=== PATIENT | male | born 1995 | race African-American/Black ===

== ENCOUNTER 2017-01-17 16:37 | Inpatient (IN) | payer SELFPAY ==
[~2017-01-17] VITALS: Ht 182.9 cm; Wt 75.0 kg
[2017-01-17 16:38] VITALS: BP 138/93; PULSE 128; RESP 16; TEMP 100.5; O2SAT 97
[2017-01-17] MEDS ORDERED: ELVI1TAB3 PO (17:32)
[2017-01-17] MEDS ORDERED: LISI-519 PO (17:32)
[2017-01-17] MEDS ORDERED: LEVEMIR SQ ×2 (17:32)
[2017-01-17] MEDS ORDERED: SODIUM CHLOR 0.9% 1000 ML INJ 1,000 ML IV SCH (17:38)
[2017-01-17 17:41] VITALS: BP 134/90; PULSE 112; RESP 20; O2SAT 98
[2017-01-17] MEDS ORDERED: ACETAMINOPHEN 325 MG TAB PO ONE (17:45)
[2017-01-17] MEDS ORDERED: SODIUM CHLORIDE 0.9% FLUSH 5 ML FLUSH IVF PRN (17:45)
[2017-01-17] MEDS ORDERED: ONDANSETRON HCL 4 MG/2 ML VIAL IVP ONE (17:45)
[2017-01-17] MEDS ORDERED: PIPERACIL-TAZO 3.375 GM PREMIX 50 ML IV ONE (17:45)
[2017-01-17] MEDS ORDERED: KETOROLAC TROMETHAMINE 30 MG/ML (IVP) VIAL IVP ONE (17:45)
--- NOTE | 2017-01-17 18:04 | PD ---
HPI Chief Complaint: Abdominal Pain Time Seen by Provider: 17:12 Travel History International Travel<30 days: No Contact w/Intl Traveler<30days: No Traveled to known affect area: No History of Present Illness HPI 21yo M with PMH of type 1 DM and HIV on HAART with undetectable VL as per patient, unknown CD4 count presents to the ED with c/o abdominal pain for 2 weeks. States it has been going on since October but for the last 2 weeks, it has been constant. Pain is mainly epigastric and had an episode of vomiting yesterday. Denies any chest pain, cough, throat pain, sob, urinary complaints or diarrhea. Pt states he has not had bowel movement in a few days. Pt was seen at [facility] on 01/14/17 under another and had US gallbladder that showed mild sludge and no stone. Normal common hepatic duct. Pt had WBC and RBC in UA but urine culture showed no growth. He was given GI cocktail, rocephin and zithromax and discharge with zantac and sucralfate. PFSH Past Medical History Diabetes: Yes Patient Takes Glucophage: No Hypertension: Yes Immune Disorder: Yes (HIV) Tetanus Vaccination: < 5 Years Influenza Vaccination: No Social History Alcohol Use: No Tobacco Use: No Substance Use: No Allergies-Medications (Allergen,Severity, Reaction): Coded Allergies: Zosyn (Verified Allergy, Severe, Hives, 01/17/17) Given Zosyn and Toradol at same time with allergic reaction of hives; uncertain at this time which drug caused the allergic reaction Toradol (Verified Allergy, Unknown, Hives, 01/17/17) Given Zosyn and Toradol at same time with allergic reaction of hives; uncertain at this time which drug caused the allergic reaction Reported Meds & Prescriptions Reported Meds & Active Scripts Active Reported Levemir Inj (Insulin Detemir) 1,000 unit/ 10 ML Vial 19 Units SQ DAILY Do not mix with any other Insulin. Levemir Inj (Insulin Detemir) 1,000 unit/ 10 ML Vial 21 Units SQ HS Do not mix with any other Insulin. Genvoya (Hraspigdcmcq-Lpjllxszkg-Xgmfrbqaqjwi-Tenofvir) [id number] Mg Tab 1 Tab PO DAILY Lisinopril 5 Mg Tab 5 Mg PO DAILY Review of Systems Except as stated in HPI: all other systems reviewed are Neg Physical Exam Narrative GENERAL: 21yo M not in distress. SKIN: Warm and dry. HEAD: Atraumatic. Normocephalic. EYES: Pupils equal and round. No scleral icterus. No injection or drainage. ENT: No nasal bleeding or discharge. Mucous membranes pink and moist. NECK: Trachea midline. No JVD. CARDIOVASCULAR: Tachycardic. No murmur appreciated. RESPIRATORY: No accessory muscle use. Clear to auscultation. Breath sounds equal bilaterally. GASTROINTESTINAL: Abdomen soft, Epigastric and LUQ ttp. No rebound tenderness or guarding. MUSCULOSKELETAL: No obvious deformities. No clubbing. No cyanosis. No edema. NEUROLOGICAL: Awake and alert. No obvious cranial nerve deficits. Motor grossly within normal limits. Normal speech. PSYCHIATRIC: Appropriate mood and affect; insight and judgment normal. Data Data Last Documented VS Vital Signs Date Time Temp Pulse Resp B/P Pulse Ox O2 Delivery O2 Flow Rate FiO2 01/17/17 19:36 18 01/17/17 19:36 112 140/82 99 Room Air 01/17/17 18:46 01/17/17 16:38 100.5 Orders Complete Blood Count With Diff (01/17/17 17:38) Comprehensive Metabolic Panel (01/17/17 17:38) Lipase (01/17/17 17:38) Prothrombin Time / Inr (Pt) (01/17/17 17:38) Act Partial Throm Time (Ptt) (01/17/17 17:38) Urinalysis - C+S If Indicated (01/17/17 17:38) Iv Access Insert/Monitor (01/17/17 17:38) Ecg Monitoring (01/17/17 17:38) Oximetry (01/17/17 17:38) Ondansetron Inj (Zofran Inj) (01/17/17 17:45) Sodium Chlor 0.9% 1000 Ml Inj (Ns 1000 M (01/17/17 17:38) Sodium Chloride 0.9% Flush (Ns Flush) (01/17/17 17:45) Electrocardiogram (01/17/17 17:38) Piperacil-Tazo 3.375 Gm Premix (Zosyn 3. (01/17/17 17:45) Ketorolac Inj (Toradol Inj) (01/17/17 17:45) Blood Culture (01/17/17 17:38) Lactic Acid Sepsis Protocol (01/17/17 17:38) Acetaminophen (Tylenol) (01/17/17 17:45) Influenzae A/B Antigen (01/17/17 17:38) Ct Abd/Pel W Iv Contrast(Rout) (01/17/17 ) Diphenhydramine Inj (Benadryl Inj) (01/17/17 18:45) Urine Culture (01/17/17 17:30) Iohexol 350 Inj (Omnipaque 350 Inj) (01/17/17 18:51) Sodium Chlor 0.9% 1000 Ml Inj (Ns 1000 M (01/17/17 19:15) Morphine Inj (Morphine Inj) (01/17/17 20:00) Admit Order (Ed Use Only) (01/17/17 20:04) Labs Laboratory Tests Test 01/17/17 01/17/17 17:30 17:50 Urine Color YELLOW Urine Turbidity CLEAR Urine pH 6.0 Urine Specific [place] 1.030 Urine Protein 300 mg/dL Urine Glucose (UA) TRACE mg/dL Urine Ketones 10 mg/dL Urine Occult Blood MOD Urine Nitrite NEG Urine Bilirubin NEG Urine Urobilinogen LESS THAN 2.0 MG/DL Urine Leukocyte Esterase SMALL Urine RBC 18 /hpf Urine WBC 38 /hpf Urine Mucus FEW /lpf Microscopic Urinalysis Comment CULTURE INDICATED White Blood Count 6.8 TH/MM3 Red Blood Count 4.30 MIL/MM3 Hemoglobin 13.2 GM/DL Hematocrit 37.9 % Mean Corpuscular Volume 88.2 FL Mean Corpuscular Hemoglobin 30.7 PG Mean Corpuscular Hemoglobin 34.8 % Concent Red Cell Distribution Width 12.8 % Platelet Count 191 TH/MM3 Mean Platelet Volume 7.3 FL Neutrophils (%) (Auto) 61.9 % Lymphocytes (%) (Auto) 27.6 % Monocytes (%) (Auto) 10.3 % Eosinophils (%) (Auto) 0.0 % Basophils (%) (Auto) 0.2 % Neutrophils # (Auto) 4.2 TH/MM3 Lymphocytes # (Auto) 1.9 TH/MM3 Monocytes # (Auto) 0.7 TH/MM3 Eosinophils # (Auto) 0.0 TH/MM3 Basophils # (Auto) 0.0 TH/MM3 CBC Comment DIFF FINAL Differential Comment Prothrombin Time 11.1 SEC Prothromb Time International 1.0 RATIO Ratio Activated Partial 27.9 SEC Thromboplast Time Sodium Level 133 MEQ/L Potassium Level 4.1 MEQ/L Chloride Level 96 MEQ/L Carbon Dioxide Level 27.6 MEQ/L Anion Gap 9 MEQ/L Blood Urea Nitrogen 17 MG/DL Creatinine 1.02 MG/DL Estimat Glomerular Filtration 112 ML/MIN Rate Random Glucose 173 MG/DL Lactic Acid Level 1.3 mmol/L Calcium Level 8.6 MG/DL Total Bilirubin 0.5 MG/DL Aspartate Amino Transf 46 U/L (AST/SGOT) Alanine Aminotransferase 43 U/L (ALT/SGPT) Alkaline Phosphatase 59 U/L Total Protein 8.7 GM/DL Albumin 3.2 GM/DL Lipase 77 U/L [facility] Medical Decision Making Medical Screen Exam Complete: Yes Emergency Medical Condition: Yes Interpretation(s) EKG: Sinus tachycardia at 115bpm. Normal axis. No ST segment elevation or depression. Laboratory Tests Test 01/17/17 01/17/17 17:30 17:50 Urine Color YELLOW (YELLW/STRAW) Urine Turbidity CLEAR (CLEAR) Urine pH 6.0 (5.0-8.5) Urine Specific [place] 1.030 (1.002-1.035) Urine Protein 300 mg/dL (NEG-TRACE) Urine Glucose (UA) TRACE mg/dL (NEG) Urine Ketones 10 mg/dL (NEG) Urine Occult Blood MOD (NEG) Urine Nitrite NEG (NEG) Urine Bilirubin NEG (NEG) Urine Urobilinogen LESS THAN 2.0 MG/DL (LESS THAN 2.0) Urine Leukocyte Esterase SMALL (NEG) Urine RBC 18 /hpf (0-3) Urine WBC 38 /hpf (0-5) Urine Mucus FEW /lpf (OCC) Microscopic Urinalysis Comment CULTURE INDICATED White Blood Count 6.8 TH/MM3 (4.0-11.0) Red Blood Count 4.30 MIL/MM3 (4.50-5.90) Hemoglobin 13.2 GM/DL (13.0-17.0) Hematocrit 37.9 % (39.0-51.0) Mean Corpuscular Volume 88.2 FL (80.0-100.0) Mean Corpuscular Hemoglobin 30.7 PG (27.0-34.0) Mean Corpuscular Hemoglobin 34.8 % Concent (32.0-36.0) Red Cell Distribution Width 12.8 % (11.6-17.2) Platelet Count 191 TH/MM3 (150-450) Mean Platelet Volume 7.3 FL (7.0-11.0) Neutrophils (%) (Auto) 61.9 % (16.0-70.0) Lymphocytes (%) (Auto) 27.6 % (9.0-44.0) Monocytes (%) (Auto) 10.3 % (0.0-8.0) Eosinophils (%) (Auto) 0.0 % (0.0-4.0) Basophils (%) (Auto) 0.2 % (0.0-2.0) Neutrophils # (Auto) 4.2 TH/MM3 (1.8-7.7) Lymphocytes # (Auto) 1.9 TH/MM3 (1.0-4.8) Monocytes # (Auto) 0.7 TH/MM3 (0-0.9) Eosinophils # (Auto) 0.0 TH/MM3 (0-0.4) Basophils # (Auto) 0.0 TH/MM3 (0-0.2) CBC Comment DIFF FINAL Differential Comment Prothrombin Time 11.1 SEC (9.8-11.6) Prothromb Time International 1.0 RATIO Ratio Activated Partial 27.9 SEC Thromboplast Time (24.3-30.1) Sodium Level 133 MEQ/L (136-145) Potassium Level 4.1 MEQ/L (3.5-5.1) Chloride Level 96 MEQ/L (98-107) Carbon Dioxide Level 27.6 MEQ/L (21.0-32.0) Anion Gap 9 MEQ/L (5-15) Blood Urea Nitrogen 17 MG/DL (7-18) Creatinine 1.02 MG/DL (0.60-1.30) Estimat Glomerular Filtration 112 ML/MIN Rate (>89) Random Glucose 173 MG/DL (74-106) Lactic Acid Level 1.3 mmol/L (0.4-2.0) Calcium Level 8.6 MG/DL (8.5-10.1) Total Bilirubin 0.5 MG/DL (0.2-1.0) Aspartate Amino Transf 46 U/L (15-37) (AST/SGOT) Alanine Aminotransferase 43 U/L (12-78) (ALT/SGPT) Alkaline Phosphatase 59 U/L (45-117) Total Protein 8.7 GM/DL (6.4-8.2) Albumin 3.2 GM/DL (3.4-5.0) Lipase 77 U/L (73-393) Differential Diagnosis Sepsis with abdominal source vs. UTI vs. influenza Narrative Course 21yo well appearing male here with persistent abdominal pain constantly for 2 weeks. Pt is mildly febrile at 100.5F and tachycardic at 128bpm at triage. Pt meets SIRS criteria so given IV zosyn to cover abdominal source. Labs reviewed , no leukocytosis. Lactic acid 1.3. Glucose 173. Lipase normal. UA showed moderate blood. WBC 38, culture is indicated. Pt has no cough, chest pain or sob and CXR a few days ago was negative so it was not repeated. CT a/p showed mild ileus. No acute findings. No obstruction. Influenza negative. Pt had itchy rash in his right thigh when he finished the zosyn so that was stopped. Pt had no sob or tongue or lip swelling. No history of allergies. Pt given diphenhydramine 50mg IV. Pt reevaluated at bedside and still with abdominal pain after toradol. Pt given NS IVF x2 and is still tachycardic in the low 100s from 108-110bpm. Will admit pt for sepsis and pain control. Morphine ordered for pain. Patient no longer has itchy after diphenhydramine. Discussed with Dr. Basurto and accepted to his service. Diagnosis Primary Impression: Sepsis Qualified Code: A41.9 - Sepsis, due to unspecified organism Admitting Information Admitting Physician Requests: it Ofelia Tamayo DO Jan 17, 2017 18:04
[2017-01-17 18:33] LABS: AUTOMATED NEUTROPHIL # 4.2 TH/MM3 (1.8-7.7); BASOPHIL % 0.2 % (0.0-2.0); HEMATOCRIT 37.9 % (39.0-51.0); HEMO FLAGS DIFF FINAL; LYMPH % 27.6 % (9.0-44.0); LYMPHOCYTE # 1.9 TH/MM3 (1.0-4.8); MEAN CELL VOLUME 88.2 FL (80.0-100.0); MEAN CORPUSCULAR HEMOGLOBIN 30.7 PG (27.0-34.0); MEAN CORPUSCULAR HGB CONC 34.8 % (32.0-36.0); MONO % 10.3 % (0.0-8.0); NEUT % 61.9 % (16.0-70.0); PLATELET COUNT 191 TH/MM3 (150-450); RED CELL DISTRIBUTION WIDTH 12.8 % (11.6-17.2); WHITE BLOOD COUNT 6.8 TH/MM3 (4.0-11.0)
[2017-01-17] MEDS ORDERED: diphenhydrAMINE HCL 50 MG/ML VIAL IV PUSH ONE (18:45)
[2017-01-17 18:46] VITALS: O2SAT 96; O2SAT 98
[2017-01-17 18:50] LABS: BLOOD, URINE MOD (NEG); COMMENT (UR) CULTURE INDICATED; CULTURE IF INDICATED CULTURE INDICATED; GLUCOSE,URINE TRACE mg/dL (NEG); KETONE, URINE 10 mg/dL (NEG); MUCUS URINE FEW /lpf (OCC); NITRITE,URINE NEG (NEG); URINE COLOR YELLOW (YELLW/STRAW)
[2017-01-17 18:50] LABS: APTT (PATIENT) 27.9 SEC (24.3-30.1); PROTHROMBIN TIME - PATIENT 11.1 SEC (9.8-11.6)
[2017-01-17] MEDS ORDERED: IOHEXOL 350 MG/ML 10 ML VIAL (for RAD DIAG) IV ONE (18:51)
[2017-01-17 18:53] LABS: ANION GAP 9 MEQ/L (5-15); AST (GOT) 46 U/L (15-37); BICARBONATE 27.6 MEQ/L (21.0-32.0); BLOOD UREA NITROGEN 17 MG/DL (7-18); CHLORIDE 96 MEQ/L (98-107); GLOMERULAR FILTRATION RATE 112 ML/MIN (>89); POTASSIUM 4.1 MEQ/L (3.5-5.1); SODIUM (NA) 133 MEQ/L (136-145)
[2017-01-17 18:56] LABS: ALKALINE PHOSPHATASE 59 U/L (45-117); ALT (GPT) 43 U/L (12-78); TOTAL BILIRUBIN ADULT 0.5 MG/DL (0.2-1.0)
[2017-01-17] MEDS ORDERED: SODIUM CHLOR 0.9% 1000 ML INJ 1,000 ML IV ONE (19:15)
--- NOTE | 2017-01-17 19:16 | RADRPT ---
EXAM DATE/TIME: 01/17/2017 18:47 [facility] COMPARISON: No previous studies available for comparison. INDICATIONS : Abdomen pain and vomiting for four days. IV CONTRAST: 100 cc Omnipaque 350 (iohexol) IV ORAL CONTRAST: No oral contrast ingested. RADIATION DOSE: 5.71 CTDIvol (mGy) MEDICAL HISTORY : HIV. SURGICAL HISTORY : None. ENCOUNTER: Initial ACUITY: 1 day PAIN SCALE: 5/10 LOCATION: Bilateral abdomen. TECHNIQUE: Volumetric scanning of the abdomen and pelvis was performed. Using automated exposure control and ad justment of the mA and/or kV according to patient size, radiation dose was kept as low as reasonably achievable to obtain optimal diagnostic quality images. FINDINGS: Bases are clear. No acute findings in the liver, spleen, adrenals, kidneys or pancreas. No calcified gallstones or biliary ductal dilatation. There is a mild ileus. No evidence for obstruction. No free fluid or free air. No adenopathy. No acute bony abnormality. CONCLUSION: 1. No acute findings. Mild ileus. No free air or free fluid. No obstruction. Dylan Harden MD on January 17, 2017 at 19:10 Board Certified Radiologist. This report was verified electronically.
[2017-01-17 19:36] VITALS: BP 140/82; PULSE 112; RESP 18; O2SAT 99
[2017-01-17] MEDS ORDERED: MORPHINE SULFATE 4 MG/ML INJ IV PUSH ONE (20:00)
--- NOTE | 2017-01-17 20:18 | HHI.HP ---
[facility] No Primary Care Physician Admission Diagnosis Sepsis with UTI Diagnoses: (1) Sepsis (2) Ileus Chief Complaint: Abdominal pain Travel History International Travel<30 Days: No Contact w/Intl Traveler <30 Da: No Traveled to Known Affected Are: No History of Present Illness Mr. Lutz is a 21-year-old male with a past medical history of HIV infection ( patient reports viral load is zero) and type 1 diabetes mellitus who presented to the emergency room 01/17/2017 complaining of abdominal pain. He presented to the emergency room 01/14/2017 with similar symptoms. Gallbladder ultrasound at that time showed no calcified stones and normal dimension of the common hepatic duct. Mild amount of sludge within the gallbladder. Chest x-ray was negative. Today, CT of abdomen and pelvis was performed with IV contrast which showed mild ileus and no other acute findings. No obstruction. Temperatures 100.5 in the ER, pulse 128 on arrival. UA is abnormal with moderate occult blood, small leukocyte esterase with culture indicated. The patient is seen in the emergency room, he reports intermittent abdominal pain occurring since October. He states this episode is been going on for about 2 weeks and is accompanied by nausea, vomiting, and constipation. He also reports accompanying fever. Symptoms are severe. He is currently requesting pain medication for his abdominal discomfort. Denies urinary symptoms. In ER, he was given Zosyn and Toradol at same time with allergic reaction of hives; uncertain at this time which drug caused the allergic reaction . Review of Systems Except as stated in HPI: all other systems reviewed are Neg Past Family Social History Past Medical History Type 1 DM HIV - undetectable viral load . Past Surgical History Left leg cellulitis - index toe both feet amputated Right hip surgery - fluid drained . Reported Medications Reported Meds & Active Scripts Active Reported Levemir Inj (Insulin Detemir) 1,000 unit/ 10 ML Vial 19 Units SQ DAILY Do not mix with any other Insulin. Levemir Inj (Insulin Detemir) 1,000 unit/ 10 ML Vial 21 Units SQ HS Do not mix with any other Insulin. Genvoya (Bqvfoxnlgzbk-Hfcfrssnmp-Dlghcwrdgcfy-Tenofvir) [phone] Mg Tab 1 Tab PO DAILY Lisinopril 5 Mg Tab 5 Mg PO DAILY Allergies: Coded Allergies: Zosyn (Verified Allergy, Severe, Hives, 01/17/17) Given Zosyn and Toradol at same time with allergic reaction of hives; uncertain at this time which drug caused the allergic reaction Toradol (Verified Allergy, Unknown, Hives, 01/17/17) Given Zosyn and Toradol at same time with allergic reaction of hives; uncertain at this time which drug caused the allergic reaction Active Ordered Medications Current Medications Ondansetron HCl 4 mg 4 mg ONCE ONCE IVP Last administered on 01/17/17 18:10; Start 01/17/17 at 17:45; Stop 01/17/17 at 17:46; Status DC Sodium Chloride (NS 1000 ml Inj) 1,000 ml @ 1,000 mls/hr Q1H IV Last administered on 01/17/17 18:10; Start 01/17/17 at 17:38; Stop 01/17/17 at 18:37 ; Status DC IV Flush 2 ml 2 ml UNSCH PRN IVF FLUSH AFTER USING IV ACCESS; Start 01/17/17 at 17:45 Piperacillin Sod/ Tazobactam Sod (Zosyn 3.375 Gm Premix) 50 ml @ 100 mls/hr ONCE ONCE IV Last administered on 01/17/17 18:10; Start 01/17/17 at 17:45; Stop 01/17/17 at 18:14; Status DC Ketorolac Tromethamine (Toradol Inj) 30 mg ONCE ONCE IVP Last administered on 01/17/17 18:10; Start 01/17/17 at 17:45; Stop 01/17/17 at 17:46; Status DC Acetaminophen (Tylenol) 650 mg ONCE ONCE PO Last administered on 01/17/17 18: 09; Start 01/17/17 at 17:45; Stop 01/17/17 at 17:46; Status DC Diphenhydramine HCl (Benadryl Inj) 50 mg ONCE ONCE IV PUSH Last administered on 01/17/17 19:08; Start 01/17/17 at 18:45; Stop 01/17/17 at 18:46; Status DC Iohexol 97 ml 97 ml STK-MED ONCE IV Last administered on 01/17/17 18:51; Start 01/17/17 at 18:51; Stop 01/17/17 at 18:52; Status DC Sodium Chloride (NS 1000 ml Inj) 1,000 ml @ 999 mls/hr BOLUS ONCE IV Last administered on 01/17/17 19:36; Start 01/17/17 at 19:15; Stop 01/17/17 at 20:15 Morphine Sulfate (Morphine Inj) 4 mg ONCE ONCE IV PUSH ; Start 01/17/17 at 20: 00; Stop 01/17/17 at 20:01; Status DC Family History Mother with CAD, Buerger's disease, type 1 diabetes mellitus Hypertension on father's side . Social History Alcohol: denies Tobacco: denies Illicit Drugs: denies . Physical Exam Vital Signs Vital Signs Date Time Temp Pulse Resp B/P Pulse Ox O2 Delivery O2 Flow Rate FiO2 01/17/17 19:36 18 01/17/17 19:36 112 18 140/82 99 Room Air 01/17/17 18:46 98 Room Air 01/17/17 17:41 112 20 134/90 98 Room Air 01/17/17 16:38 100.5 128 16 138/93 97 Room Air Physical Exam GENERAL: This is a young male patient, in no apparent distress; affect is somewhat flat. SKIN: No rashes, ecchymoses or lesions. Cool and dry. HEAD: Atraumatic. Normocephalic. EYES: No scleral icterus. No injection or drainage. ENT: Nose without bleeding, purulent drainage. NECK: Trachea midline. No JVD or lymphadenopathy. CARDIOVASCULAR: Regular rate and rhythm without murmurs, gallops, or rubs. RESPIRATORY: Clear to auscultation. Breath sounds equal bilaterally. No wheezes , rales, or rhonchi. GASTROINTESTINAL: Abdomen: diminished bowel sounds; with palpation-upper abdominal tenderness; periumbilical tenderness. No guarding. MUSCULOSKELETAL: Extremities without clubbing, cyanosis, or edema. No calf tenderness. NEUROLOGICAL: Awake and alert. Motor and sensory grossly within normal limits. Normal speech. . Laboratory Laboratory Tests Test 01/17/17 01/17/17 17:30 17:50 Urine Color YELLOW Urine Turbidity CLEAR Urine pH 6.0 Urine Specific [place] 1.030 Urine Protein 300 Urine Glucose (UA) TRACE Urine Ketones 10 Urine Occult Blood MOD Urine Nitrite NEG Urine Bilirubin NEG Urine Urobilinogen LESS THAN 2.0 Urine Leukocyte Esterase SMALL Urine RBC 18 Urine WBC 38 Urine Mucus FEW Microscopic Urinalysis Comment CULTURE INDICATED White Blood Count 6.8 Red Blood Count 4.30 Hemoglobin 13.2 Hematocrit 37.9 Mean Corpuscular Volume 88.2 Mean Corpuscular Hemoglobin 30.7 Mean Corpuscular Hemoglobin 34.8 Concent Red Cell Distribution Width 12.8 Platelet Count 191 Mean Platelet Volume 7.3 Neutrophils (%) (Auto) 61.9 Lymphocytes (%) (Auto) 27.6 Monocytes (%) (Auto) 10.3 Eosinophils (%) (Auto) 0.0 Basophils (%) (Auto) 0.2 Neutrophils # (Auto) 4.2 Lymphocytes # (Auto) 1.9 Monocytes # (Auto) 0.7 Eosinophils # (Auto) 0.0 Basophils # (Auto) 0.0 CBC Comment DIFF FINAL Differential Comment Prothrombin Time 11.1 Prothromb Time International 1.0 Ratio Activated Partial 27.9 Thromboplast Time Sodium Level 133 Potassium Level 4.1 Chloride Level 96 Carbon Dioxide Level 27.6 Anion Gap 9 Blood Urea Nitrogen 17 Creatinine 1.02 Estimat Glomerular Filtration 112 Rate Random Glucose 173 Lactic Acid Level 1.3 Calcium Level 8.6 Total Bilirubin 0.5 Aspartate Amino Transf 46 (AST/SGOT) Alanine Aminotransferase 43 (ALT/SGPT) Alkaline Phosphatase 59 Total Protein 8.7 Albumin 3.2 Lipase 77 Date/Time Procedure Status Source Growth 01/17/17 17:55 Influenza Types A,B Antigen (EFFIE) - Final Complete Nasal Aspirate NEGATIVE FOR FLU A AND B ANTIGEN.... 01/17/17 17:50 Aerobic Blood Culture Received Blood Peripheral Pending 01/17/17 17:50 Anaerobic Blood Culture Received Blood Peripheral Pending 01/17/17 17:30 Urine Culture Received Urine Random Urine Pending Result Diagram: 01/17/17 1750 01/17/17 175 Assessment and Plan Problem List: (1) Sepsis ICD Code: A41.9 Status: Acute (2) Ileus ICD Code: K56.7 Status: Acute Assessment and Plan Sepsis related to suspected UTI - Urine culture pending; follow results and adjust treatment as indicated - Ciprofloxacin 400 mg IV every 12 hours - Consult infectious disease; assistance appreciated - IV fluid hydration with normal saline at 100 cc per hour - Tylenol as needed for fever Abdominal pain Ileus, mild - Conservative use of narcotics - IV fluid hydration - Morphine 2-4 mg IV every 3 hours as needed for pain - use cautiously Type 1 diabetes mellitus - Diabetic conservative carbohydrate diet - Continue home Levemir - Accu-Cheks before meals and at bedtime with low-dose NovoLog sliding scale coverage - Monitor blood glucose levels and adjust treatments as indicated - Hypoglycemia protocol in place In ER, he was given Zosyn and Toradol at same time with allergic reaction of hives; uncertain at this time which drug caused the allergic reaction DVT prophylaxis - SCDs Written by Yisel Herzog, acting as scribe for Dr. Hussein on 01/17/17 at 20: 15. All or portions of this note were transcribed by scribELMER Jeffers. I, Dr. Kwan Hussein personally performed the history, physical exam, and medical decision making; and confirmed the accuracy of the information in the transcribed note. Authenticated by Dr. Kwan Hussein on 01/17/17 at 22:19. Discussed Condition With Patient, ER physician . Physician Certification 2 Midnight Certification Type: Admission for Inpatient Services Order for Inpatient Services The services are ordered in accordance with Medicare regulations or non- Medicare payer requirements, as applicable. In the case of services not specified as inpatient-only, they are appropriately provided as inpatient services in accordance with the 2-midnight benchmark. Estimated LOS (days): 3 days is the estimated time the patient will need to remain in the hospital, assuming treatment plan goals are met and no additional complications. Post-Hospital Plan: Yisel De Dios Jan 17, 2017 20:18 Kwan Hussein MD Jan 17, 2017 22:19
[2017-01-17] MEDS ORDERED: ACETAMINOPHEN 325 MG TAB PO PRN (20:30)
[2017-01-17] MEDS ORDERED: MORPHINE SULFATE 4 MG/ML INJ IV PRN (20:30)
[2017-01-17] MEDS ORDERED: ONDANSETRON HCL 4 MG/2 ML VIAL IVP PRN (20:30)
[2017-01-17] MEDS ORDERED: NALOXONE HCL 0.4 MG/ML AMP IV PRN (20:30)
[2017-01-17] MEDS: CIPROFLOXACIN 400 MG PREMIX 200 ML IV SCH (21:32)
[2017-01-17] MEDS: SODIUM CHLOR 0.9% 1000 ML INJ 1,000 ML IV SCH (21:32)
[2017-01-17] MEDS: DOCUSATE SODIUM 100 MG CAP PO SCH (21:33)
[2017-01-17] MEDS ORDERED: GLUCAGON 1 MG/ML VIAL OTHER PRN (22:00)
[2017-01-17] MEDS ORDERED: DEXTROSE 50% IN WATER 50 ML VIAL(D50) IV PUSH PRN (22:00)
[2017-01-17 23:58] VITALS: BP 130/80
[2017-01-18 01:02] VITALS: BP 157/90; PULSE 87; RESP 20; TEMP 99.3; O2SAT 99
[2017-01-18] MEDS: MORPHINE SULFATE 4 MG/ML INJ IV PRN ×6 (01:13→21:26)
[2017-01-18 04:35] VITALS: BP 132/84; PULSE 88; RESP 20; TEMP 100.2; O2SAT 100
[2017-01-18 05:05] LABS: AUTOMATED NEUTROPHIL # 2.4 TH/MM3 (1.8-7.7); BASOPHIL % 0.1 % (0.0-2.0); HEMATOCRIT 31.7 % (39.0-51.0); HEMO FLAGS DIFF FINAL; LYMPH % 43.8 % (9.0-44.0); LYMPHOCYTE # 2.4 TH/MM3 (1.0-4.8); MEAN CELL VOLUME 87.5 FL (80.0-100.0); MEAN CORPUSCULAR HEMOGLOBIN 30.3 PG (27.0-34.0); MEAN CORPUSCULAR HGB CONC 34.7 % (32.0-36.0); MONO % 11.9 % (0.0-8.0); NEUT % 44.2 % (16.0-70.0); PLATELET COUNT 169 TH/MM3 (150-450); RED BLOOD COUNT 3.62 MIL/MM3 (4.50-5.90); WHITE BLOOD COUNT 5.4 TH/MM3 (4.0-11.0)
[2017-01-18 05:33] LABS: BICARBONATE 23.1 MEQ/L (21.0-32.0); POTASSIUM 4.1 MEQ/L (3.5-5.1)
[2017-01-18] MEDS: SODIUM CHLOR 0.9% 1000 ML INJ 1,000 ML IV SCH ×2 (05:55→17:00)
[2017-01-18] MEDS: INSULIN ASPART SUPPLEMENTAL SCALE SQ SCH ×4 (05:55→21:29)
[2017-01-18 08:00] VITALS: BP 137/84; PULSE 98; RESP 20; TEMP 97.1; O2SAT 98
[2017-01-18] MEDS ORDERED: NON-FORMULARY DRUG (Elvitegravir-Cobicistat-Emtricitabin-Tenofvir (Genvoya) 1 TAB) PO SCH (09:00)
[2017-01-18] MEDS ORDERED: PT:GENVOYA PO SCH (09:00)
[2017-01-18] MEDS: INSULIN DETEMIR 100 UNITS/ML VIAL SQ SCH ×2 (09:00→21:29)
[2017-01-18] MEDS: CIPROFLOXACIN 400 MG PREMIX 200 ML IV SCH ×2 (09:01→21:28)
[2017-01-18] MEDS: LISINOPRIL 5 MG TAB PO SCH (09:01)
[2017-01-18] MEDS: DOCUSATE SODIUM 100 MG CAP PO SCH ×2 (09:02→21:26)
[2017-01-18 12:00] VITALS: BP 133/80; PULSE 99; RESP 14; TEMP 98.8; O2SAT 99
--- NOTE | 2017-01-18 13:47 | PD.ID.CON ---
History of Present Illness Service ID Consult Requested By Dr Aguilar Reason for Consult sepsis HIV UTI Primary Care Physician No Primary Care Physician Diagnoses: History of Present Illness 21 yo male with HIV dz (on HAART - Genvoya, VL undetectable) and type I DM presented with 2 weeks of abd pain and fever, low grade. He also co constipation > 1 week UA with prominent pyuria, urine clx P He was given zosyn, but developpe dhives with it and is now switched to cipro His CT abd/pel showed just mild ileus, no obstruction His blood clx and flu test were negative Pt has not been taking HAART x 5 days since he ran out of it (insurance issues) Review of Systems Gastrointestinal: COMPLAINS OF: Abdominal pain, Constipation, Nausea, Vomiting Except as stated in HPI: all other systems reviewed are Neg Past Family Social History Allergies: Coded Allergies: Zosyn (Verified Allergy, Severe, Hives, 01/17/17) Given Zosyn and Toradol at same time with allergic reaction of hives; uncertain at this time which drug caused the allergic reaction Toradol (Verified Allergy, Unknown, Hives, 01/17/17) Given Zosyn and Toradol at same time with allergic reaction of hives; uncertain at this time which drug caused the allergic reaction Past Medical History type 1 DM HIV sz . Past Surgical History b/l 2 nd toes amputations Right hip surgery Active Ordered Medications Medications where reviewed in EMR Antibiotics Include: cipro Family History Mother with CAD, Buerger's disease, type 1 diabetes mellitus Hypertension on father's side . Social History No Tobacco. No ETOH. No Illicit Drugs. Physical Exam Vital Signs Vital Signs Date Time Temp Pulse Resp B/P Pulse Ox O2 Delivery O2 Flow Rate FiO2 01/18/17 08:00 97.1 98 20 137/84 98 01/18/17 04:35 100.2 88 20 132/84 100 01/18/17 01:02 99.3 87 20 157/90 99 01/17/17 23:58 95 18 130/80 95 01/17/17 19:36 18 01/17/17 19:36 112 18 140/82 99 Room Air 01/17/17 18:46 98 Room Air 01/17/17 17:41 112 20 134/90 98 Room Air 01/17/17 16:38 100.5 128 16 138/93 97 Room Air Physical Exam CONSTITUTIONAL/GENERAL: This is an adequately nourished patient, in no apparent distress. TUBES/LINES/DRAINS: SKIN: No jaundice, rashes, or lesions. Skin temperature appropriate. Not diaphoretic. HEAD: Atraumatic. Normocephalic. EYES: Pupils equal and round and reactive. Extraocular motions intact. No scleral icterus. No injection or drainage. Fundi not examined. ENT: Hearing grossly normal. Nose without bleeding or purulent drainage. Oral mucosae without visible erythema, exudates, masses, or lesions. dentition is good NECK: Trachea midline. Supple, nontender. CARDIOVASCULAR: Regular rate and rhythm without murmurs, gallops, or rubs. No JVD. Peripheral pulses symmetric. RESPIRATORY/CHEST: Symmetric, unlabored respirations. Clear to auscultation. Breath sounds equal bilaterally. No wheezes, rales, or rhonchi. GASTROINTESTINAL: Abdomen soft, non-tender, nondistended. No hepato-splenomegaly , or palpable masses. No guarding. Bowel sounds present. GENITOURINARY: Without palpable bladder distension. MUSCULOSKELETAL: Extremities without clubbing, cyanosis, or edema. No joint tenderness or effusion noted. No calf tenderness. No mottling or clubbing. Well healed b/l 2nd toes partial amputations LYMPHATICS: No palpable cervical or supraclavicular adenopathy. NEUROLOGICAL: Awake and alert. Motor and sensory grossly within normal limits. Follows commands. Cognitively sharp. Moves all extremities. PSYCHIATRIC: No obvious anxiety/depression. no apparent hallucinations or other psychotic thought process. Laboratory Laboratory Tests Test 01/17/17 01/17/17 01/18/17 17:30 17:50 04:31 Urine Color YELLOW Urine Turbidity CLEAR Urine pH 6.0 Urine Specific Leonard 1.030 Urine Protein 300 Urine Glucose (UA) TRACE Urine Ketones 10 Urine Occult Blood MOD Urine Nitrite NEG Urine Bilirubin NEG Urine Urobilinogen LESS THAN 2.0 Urine Leukocyte Esterase SMALL Urine RBC 18 Urine WBC 38 Urine Mucus FEW Microscopic Urinalysis Comment CULTURE INDICATED White Blood Count 6.8 5.4 Red Blood Count 4.30 3.62 Hemoglobin 13.2 11.0 Hematocrit 37.9 31.7 Mean Corpuscular Volume 88.2 87.5 Mean Corpuscular Hemoglobin 30.7 30.3 Mean Corpuscular Hemoglobin 34.8 34.7 Concent Red Cell Distribution Width 12.8 13.0 Platelet Count 191 169 Mean Platelet Volume 7.3 7.1 Neutrophils (%) (Auto) 61.9 44.2 Lymphocytes (%) (Auto) 27.6 43.8 Monocytes (%) (Auto) 10.3 11.9 Eosinophils (%) (Auto) 0.0 0.0 Basophils (%) (Auto) 0.2 0.1 Neutrophils # (Auto) 4.2 2.4 Lymphocytes # (Auto) 1.9 2.4 Monocytes # (Auto) 0.7 0.6 Eosinophils # (Auto) 0.0 0.0 Basophils # (Auto) 0.0 0.0 CBC Comment DIFF FINAL DIFF FINAL Differential Comment Prothrombin Time 11.1 Prothromb Time International 1.0 Ratio Activated Partial 27.9 Thromboplast Time Sodium Level 133 135 Potassium Level 4.1 4.1 Chloride Level 96 102 Carbon Dioxide Level 27.6 23.1 Anion Gap 9 10 Blood Urea Nitrogen 17 13 Creatinine 1.02 0.73 Estimat Glomerular Filtration 112 164 Rate Random Glucose 173 131 Lactic Acid Level 1.3 Calcium Level 8.6 8.1 Total Bilirubin 0.5 Aspartate Amino Transf 46 (AST/SGOT) Alanine Aminotransferase 43 (ALT/SGPT) Alkaline Phosphatase 59 Total Protein 8.7 Albumin 3.2 Lipase 77 Date/Time Procedure Status Source Growth 01/17/17 17:55 Influenza Types A,B Antigen (EFFIE) - Final Complete Nasal Aspirate NEGATIVE FOR FLU A AND B ANTIGEN.... 01/17/17 17:50 Aerobic Blood Culture - Preliminary Resulted Blood Peripheral NO GROWTH IN 1 DAY 01/17/17 17:50 Anaerobic Blood Culture - Preliminary Resulted Blood Peripheral NO GROWTH IN 1 DAY 01/17/17 17:30 Urine Culture - Preliminary Resulted Urine Random Urine RESULTS PENDING Result Diagram: 01/18/17 0431 01/18/17 0431 Assessment and Plan Assessment and Plan HIV, non compliant with HAARt 2/2 insurance issues - pt is NOT taking HAART x 5 days Fever , abd pain, constipation DM UTI Allergic reaction to zosyn (hives) cont current abx fu bnlood and urine clx consider GI consilt if cont with unexplained abd pain Discussed Condition With Stormy Sanford RN, MD Jan 18, 2017 13:46
--- NOTE | 2017-01-18 14:15 | HHI.PR ---
Subjective Remarks patient complains of epigastric pain radiating to left upper quadrant area- steady pain associated with nausea above area "feels swollen" denies any diarrhea or constipation + mild burning on urination no penile discharge Objective Vitals Vital Signs Date Time Temp Pulse Resp B/P Pulse Ox O2 Delivery O2 Flow Rate FiO2 01/18/17 08:00 97.1 98 20 137/84 98 01/18/17 04:35 100.2 88 20 132/84 100 01/18/17 01:02 99.3 87 20 157/90 99 01/17/17 23:58 95 18 130/80 95 01/17/17 19:36 18 01/17/17 19:36 112 18 140/82 99 Room Air 01/17/17 18:46 98 Room Air 01/17/17 17:41 112 20 134/90 98 Room Air 01/17/17 16:38 100.5 128 16 138/93 97 Room Air I/O 01/17/17 01/17/17 01/17/17 01/18/17 01/18/17 01/18/17 07:00 15:00 23:00 07:00 15:00 23:00 Intake Total 800 ml 457 ml Balance 800 ml 457 ml Intake Oral 0 ml IV Total 800 ml 457 ml # Voids 1 # Bowel Movements 0 Result Diagram: 01/18/17 04301/18/17 043 Objective Remarks awake and alert, NAD anicteric no oral thrush no nuchal rigidity lungs clear, no rales or wheezes regular rhythm abdomen- slightly distended, soft, + left CVA tenderness no edema neuro exam- non focal A/P Problem List: (1) Sepsis ICD Code: A41.9 Status: Acute (2) Ileus ICD Code: K56.7 Status: Acute Assessment and Plan Sepsis related to s UTI + HIV - Urine culture pending; follow results and adjust treatment as indicated - Ciprofloxacin 400 mg IV every 12 hours - continue on HAART meds - IV fluid hydration with normal saline at 100 cc per hour - Tylenol as needed for fever Abdominal pain Ileus, mild - lipase normal - Conservative use of narcotics - IV fluid hydration - Morphine 2-4 mg IV every 3 hours as needed for pain - use cautiously - start PPI Type 1 diabetes mellitus - Diabetic conservative carbohydrate diet - Continue home Levemir - Accu-Cheks before meals and at bedtime with low-dose NovoLog sliding scale coverage - Monitor blood glucose levels and adjust treatments as indicated - Hypoglycemia protocol in place History of hypertension - continue on his ERIC- Lisinopril In ER, he was given Zosyn and Toradol at same time with allergic reaction of hives; uncertain at this time which drug caused the allergic reaction DVT prophylaxis Encourage increase activity and ambulation around room - SCDs Problem Qualifiers (1) Sepsis: Qualified Code: A41.9 - Sepsis, due to unspecified organism Fior Marquez MD Jan 18, 2017 14:15
--- NOTE | 2017-01-18 14:54 | EKG ---
Date Performed: 01/17/2017 Time Performed: 15:57:41 PTAGE: 21 years EKG: SINUS TACHYCARDIA ABNORMAL RHYTHM ECG NO PREVIOUS TRACING DOCTOR: Ivette Mcginnis Interpretating Date/Time 01/18/2017 14:49:26
[2017-01-18] MEDS ORDERED: MORPHINE SULFATE 4 MG/ML INJ IV PRN ×3 (15:00→16:00)
[2017-01-18] MEDS: PANTOPRAZOLE SODIUM 40 MG VIAL IV PUSH SCH (15:06)
[2017-01-18 16:00] VITALS: BP 135/64; PULSE 72; RESP 18; TEMP 95.9; O2SAT 97
[2017-01-18 20:00] VITALS: BP 130/70; PULSE 70; RESP 20; TEMP 97.4; O2SAT 96
[2017-01-19] VITALS: BP 126/68; PULSE 70; RESP 20; TEMP 97.4; O2SAT 98
[2017-01-19] MEDS: MORPHINE SULFATE 4 MG/ML INJ IV PRN ×2 (01:34→05:23)
[2017-01-19 04:00] VITALS: BP 129/72; PULSE 68; RESP 20; TEMP 97; O2SAT 97
[2017-01-19] MEDS: SODIUM CHLOR 0.9% 1000 ML INJ 1,000 ML IV SCH ×3 (05:25→23:14)
[2017-01-19] MEDS: INSULIN ASPART SUPPLEMENTAL SCALE SQ SCH ×4 (05:26→20:12)
[2017-01-19 08:00] VITALS: BP 132/83; PULSE 85; RESP 17; TEMP 97.3; O2SAT 100
[2017-01-19] MEDS: DOCUSATE SODIUM 100 MG CAP PO SCH ×2 (08:21→20:12)
[2017-01-19] MEDS: CIPROFLOXACIN 400 MG PREMIX 200 ML IV SCH ×2 (08:21→20:12)
[2017-01-19] MEDS: LISINOPRIL 5 MG TAB PO SCH (08:22)
[2017-01-19] MEDS: INSULIN DETEMIR 100 UNITS/ML VIAL SQ SCH ×2 (08:22→20:13)
--- NOTE | 2017-01-19 08:57 | HHI.PR ---
Subjective Remarks still with persistent epigastric pain no difficulty swallowing, odynophagia, + flatus, no BM no urinary complaints, no fever or chills appears comfortable, states Morphine not working Objective Vitals Vital Signs Date Time Temp Pulse Resp B/P Pulse Ox O2 Delivery O2 Flow Rate FiO2 01/19/17 08:00 97.3 85 17 132/83 100 01/19/17 04:00 97.0 68 20 129/72 97 01/19/17 01:39 20 01/19/17 00:00 97.4 70 20 126/68 98 01/18/17 20:00 97.4 70 20 130/70 96 01/18/17 16:00 95.9 72 18 135/64 97 01/18/17 12:00 98.8 99 14 133/80 99 I/O 01/18/17 01/18/17 01/18/17 01/19/17 01/19/17 01/19/17 07:00 15:00 23:00 07:00 15:00 23:00 Intake Total 800 ml 557 ml 480 ml 1943 ml Output Total 1250 ml 650 ml 400 ml Balance 800 ml -693 ml -170 ml 1543 ml Intake Oral 0 ml 100 ml 480 ml 240 ml IV Total 800 ml 457 ml 1703 ml Output Urine Total 1250 ml 650 ml 400 ml # Voids 1 # Bowel Movements 0 0 0 0 Result Diagram: 01/18/17 0431 01/18/17 0431 Imaging Last Impressions Abdomen/Pelvis CT 01/17/17 0000 Signed Impressions: Service Date/Time: Tuesday, January 17, 2017 18:47 - CONCLUSION: 1. No acute findings. Mild ileus. No free air or free fluid. No obstruction. Dylan Harden MD Objective Remarks awake and alert, NAD anicteric no oral thrush no nuchal rigidity lungs clear, no rales or wheezes regular rhythm abdomen- soft, + bowel sounds, + mild epigastric tenderness on deep palpation no edema neuro exam- non focal A/P Problem List: (1) Sepsis ICD Code: A41.9 Status: Acute (2) Ileus ICD Code: K56.7 Status: Acute Assessment and Plan Sepsis related to s UTI + HIV - Urine culture still pending; - Ciprofloxacin 400 mg IV every 12 hours - continue on HAART meds - IV fluid hydration with normal saline at 100 cc per hour - Tylenol as needed for fever Abdominal pain- patient appears comfortable Ileus, mild - lipase normal- Recheck today - IV fluid hydration - no relief with Morphine- change to Dilaudid IV - PPI - GI consult - give Lactulose x 1- for no BM Type 1 diabetes mellitus - Diabetic conservative carbohydrate diet - Continue home Levemir - Accu-Cheks before meals and at bedtime with low-dose NovoLog sliding scale coverage - Monitor blood glucose levels and adjust treatments as indicated - Hypoglycemia protocol in place History of hypertension - continue on his ERIC- Lisinopril In ER, he was given Zosyn and Toradol at same time with allergic reaction of hives; uncertain at this time which drug caused the allergic reaction DVT prophylaxis Encourage increase activity and ambulation around room - SCDs Problem Qualifiers (1) Sepsis: Qualified Code: A41.9 - Sepsis, due to unspecified organism Fior Marquez MD Jan 19, 2017 08:57 Fior Marquez MD Jan 19, 2017 08:57
[2017-01-19] MEDS: LACTULOSE SYRUP 20 GM/30 ML CUP PO SCH (09:59)
[2017-01-19] MEDS ORDERED: HYDROmorphone HCL PF 1 MG/ML VIAL IV PUSH PRN (10:00)
[2017-01-19 12:00] VITALS: BP 134/78; PULSE 82; RESP 17; TEMP 97.8; O2SAT 98
[2017-01-19] MEDS: HYDROmorphone HCL PF 1 MG/ML VIAL IV PUSH PRN ×2 (12:03→23:02)
[2017-01-19] MEDS: PANTOPRAZOLE SODIUM 40 MG VIAL IV PUSH SCH (16:50)
--- NOTE | 2017-01-19 19:22 | MB ---
cc: AMA FITZPATRICK MD,SYDNEE Parks MD DATE OF CONSULTATION 01/19/[address] Marquez. REASON FOR CONSULTATION Epigastric pain, nausea, vomiting. HISTORY OF PRESENT ILLNESS Mr. Lutz is a 21-year-old gentleman with HIV who states for about twi weeks he has been having abdominal discomfort and nausea, vomiting. Previous workup has included an ultrasound and a CT scan with nonspecific findings. GI service has now been consulted for further recommendations. The patient states overall his symptoms are improved, although he still has some abdominal discomfort. REVIEW OF SYSTEMS No nausea, vomiting, no abdominal pain, no bleeding at this time. PAST MEDICAL HISTORY 1. Diabetes, 2. HIV PAST SURGICAL HISTORY 1. Cellulitis 2. Hip surgery. MEDICATIONS 1. Insulin 2. Genvoya 3. Lisinopril. ALLERGIES ZOSYN TORADOL SOCIAL HISTORY No tobacco, no alcohol PHYSICAL EXAMINATION GENERAL: A well-nourished man in no apparent distress. VITAL SIGNS: Stable. HEAD/NECK: Anicteric sclerae. CHEST: Bilateral air entry with rales. ABDOMEN: Soft, nontender. No hepatosplenomegaly. Bowel sounds are present. STRAPPER: Exam is nonfocal. RECTAL: Deferred at this time LABORATORY DATA Hemoglobin of 11. Liver function tests are normal. Lipase 77. IMAGING STUDIES CT of the abdomen and pelvis is nonspecific. IMPRESSION Epigastric discomfort, nausea, vomiting. RECOMMENDATIONS Endoscopy discussed with the patient. This will be scheduled for tomorrow. Continue Protonix at this time. Further recommendations to follow based on the above. Thank you for this referral. MD LAST Olivares/ /6:21 PM /7:18 PM
[2017-01-19 20:00] VITALS: BP 150/94; PULSE 88; RESP 20; TEMP 98.2; O2SAT 100
[2017-01-20] VITALS (7 sets, daily range): BP systolic 141–172; BP diastolic 90–108; PULSE 77–95; RESP 14–20; TEMP 96.2–97.8; O2SAT 97–100
[2017-01-20] MEDS: INSULIN ASPART SUPPLEMENTAL SCALE SQ SCH ×4 (05:09→20:49)
[2017-01-20] MEDS: CIPROFLOXACIN 400 MG PREMIX 200 ML IV SCH (08:26)
[2017-01-20] MEDS: INSULIN DETEMIR 100 UNITS/ML VIAL SQ SCH ×2 (08:27→20:48)
[2017-01-20] MEDS: LACTULOSE SYRUP 20 GM/30 ML CUP PO SCH (08:28)
[2017-01-20] MEDS: DOCUSATE SODIUM 100 MG CAP PO SCH ×2 (08:28→20:32)
[2017-01-20] MEDS: LISINOPRIL 5 MG TAB PO SCH (08:29)
[2017-01-20] MEDS: SODIUM CHLOR 0.9% 1000 ML INJ 1,000 ML IV SCH (08:35)
[2017-01-20] MEDS: HYDROmorphone HCL PF 1 MG/ML VIAL IV PUSH PRN ×2 (13:48→20:31)
[2017-01-20] MEDS ORDERED: MIDAZOLAM HCL 2 MG/2 ML VIAL ONE (14:27)
--- NOTE | 2017-01-20 14:32 | HHI.PR ---
Subjective Remarks appears comfortable tolerated EGD well states he is very anxious Objective Vitals Vital Signs Date Time Temp Pulse Resp B/P Pulse Ox O2 Delivery O2 Flow Rate FiO2 01/20/17 11:07 97.8 86 14 143/93 99 01/20/17 08:00 97.8 86 14 143/93 99 01/20/17 00:00 97.4 80 20 148/90 97 01/19/17 23:32 16 01/19/17 20:00 98.2 88 20 150/94 100 I/O 01/19/17 01/19/17 01/19/17 01/20/17 01/20/17 01/20/17 07:00 15:00 23:00 07:00 15:00 23:00 Intake Total 1943 ml 1202 ml 1230 ml Output Total 400 ml 650 ml 550 ml Balance 1543 ml 552 ml 680 ml Intake Oral 240 ml 240 ml 0 ml IV Total 1703 ml 962 ml 1230 ml Output Urine Total 400 ml 650 ml 550 ml # Bowel Movements 0 0 0 Result Diagram: 01/18/17 0431 01/18/17 0431 Imaging Last Impressions Abdomen/Pelvis CT 01/17/17 0000 Signed Impressions: Service Date/Time: Tuesday, January 17, 2017 18:47 - CONCLUSION: 1. No acute findings. Mild ileus. No free air or free fluid. No obstruction. Dylan Harden MD Objective Remarks awake and alert, NAD anicteric no oral thrush no nuchal rigidity lungs clear, no rales or wheezes regular rhythm abdomen- soft, + bowel sounds, + non tender no edema neuro exam- non focal Procedures 01/20- EGD A/P Problem List: (1) Sepsis ICD Code: A41.9 Status: Acute (2) Ileus ICD Code: K56.7 Status: Acute Assessment and Plan Sepsis related to s UTI + HIV - Urine culture still pending; - Ciprofloxacin 400 mg IV every 12 hours - continue on HAART meds - Tylenol as needed for fever Abdominal pain- for EGD Ileus, mild - lipase normal- - IV fluid hydration - no relief with Morphine- change to Dilaudid IV - PPI - GI consult Type 1 diabetes mellitus - Diabetic conservative carbohydrate diet - Continue home Levemir - Accu-Cheks before meals and at bedtime with low-dose NovoLog sliding scale coverage - Monitor blood glucose levels and adjust treatments as indicated - Hypoglycemia protocol in place History of hypertension - continue on his ERIC- Lisinopril- increase dose In ER, he was given Zosyn and Toradol at same time with allergic reaction of hives; uncertain at this time which drug caused the allergic reaction DVT prophylaxis Encourage increase activity and ambulation around room - SCDs Problem Qualifiers (1) Sepsis: Qualified Code: A41.9 - Sepsis, due to unspecified organism Fior Marquez MD Jan 20, 2017 14:32 (1) Sepsis: Qualified Code: A41.9 - Sepsis, due to unspecified organism Fior Marquez MD Jan 20, 2017 14:32
[2017-01-20] MEDS ORDERED: cloNIDine HCL 0.1 MG TAB PO PRN (14:45)
--- NOTE | 2017-01-20 15:04 | HHI.PR ---
Addendum to Inpatient Note Additional Information chart reviewed URINE CULTURE Final 01/19/17-0858 NO GROWTH IN 48 HOURS. afebrile will dc abx will fu GI w/u results Stormy Greene MD Jan 20, 2017 15:04
[2017-01-20] MEDS: PANTOPRAZOLE SODIUM 40 MG VIAL IV PUSH SCH (15:17)
[2017-01-20] MEDS ORDERED: PROPOFOL 200 MG/20 ML AMP IV ONE (16:12)
[2017-01-21] VITALS: BP_SYST 103; BP_SYST 140; BP_DIAS 60; BP_DIAS 86; PULSE 84; RESP 20; TEMP 98.1; O2SAT 96
[2017-01-21] MEDS: HYDROmorphone HCL PF 1 MG/ML VIAL IV PUSH PRN ×3 (00:34→11:02)
[2017-01-21] MEDS: SODIUM CHLOR 0.9% 1000 ML INJ 1,000 ML IV SCH (00:35)
[2017-01-21 04:00] VITALS: BP 133/78; PULSE 88; RESP 20; TEMP 96.1; O2SAT 99
[2017-01-21] MEDS: INSULIN ASPART SUPPLEMENTAL SCALE SQ SCH ×2 (05:58→11:00)
[2017-01-21 08:00] VITALS: BP 122/75; PULSE 87; RESP 16; TEMP 97; O2SAT 100
[2017-01-21] MEDS: LACTULOSE SYRUP 20 GM/30 ML CUP PO SCH ×2 (08:58→09:00)
[2017-01-21] MEDS: DOCUSATE SODIUM 100 MG CAP PO SCH (08:58)
[2017-01-21] MEDS: INSULIN DETEMIR 100 UNITS/ML VIAL SQ SCH (08:58)
[2017-01-21] MEDS ORDERED: LISINOPRIL 10 MG TAB PO SCH (09:00)
[2017-01-21 12:00] VITALS: BP 126/81; PULSE 86; RESP 16; TEMP 97.2; O2SAT 100
--- NOTE | 2017-01-21 12:21 | GIPROC ---
[facility] [address] [facility]. [facility], [id number] EGD PROCEDURE REPORT EXAM DATE: 01/20/2017 PATIENT NAME: Curly Lutz MR #: [id number] BIRTHDATE: 1995 ATTENDING: Raisa Gonzalez MD ORDER #: [id number] SHIP SCALER: Archana Baumann and Abhay Guevara STATUS: inpatient INDICATIONS: The patient is a 21 yr old male here for an EGD due to epigastric abdominal pain PROCEDURE PERFORMED: EGD w/ biopsy MEDICATIONS: None and Per Anesthesia. TOPICAL ANESTHETIC: CONSENT: The patient understands the risks and benefits of the procedure and understands that these risks include, but are not limited to: sedation, allergic reaction, infection, perforation and/or bleeding. Alternative means of evaluation and treatment include, among others: physical exam, x-rays, and/or surgical intervention. The patient elects to proceed with this endoscopic procedure. medical equipment was checked for proper function. Hand hygiene and appropriate measures for infection prevention was taken. After the risks, benefits and alternatives of the procedure were thoroughly explained, Informed consent was verified, confirmed and timeout was successfully executed by the treatment team. The patient was anesthetized with topical anesthesia and the Pentax EG-[id number] and [id number] endoscope was introduced through the mouth and advanced to the second portion of the duodenum. Retroflexed views revealed no abnormalities The gastroscope was then slowly withdrawn and removed. ESOPHAGUS: There was LA Class A esophagitis noted. A biopsy was performed using cold forceps. STOMACH: There was mild gastritis in the gastric antrum. A biopsy was performed using cold forceps. Sample sent for histology. ADVERSE EVENTS: There were no complications. IMPRESSIONS: 1. There was LA Class A esophagitis noted 2. There was mild gastritis in the gastric antrum; biopsy was performed 3. Retroflexed views revealed no abnormalities RECOMMENDATIONS: 1. Await biopsy results. Biopsy results will not be ready for 7-10 days. If you don't hear from us in two weeks, call our office for biopsy results. 2. Anti-reflux regimen 3. Continue PPI 4. Avoid NSAIDS PATIENT CONDITION: stable DISPOSITION: Inpatient REPEAT EXAM: Return 1 year EGD Raisa Gonzalez MD eSigned: Raisa Gonzalez MD 01/20/2017 1:13 PM cc: PATIENT NAME: Curly Lutz MR#: [id number]
--- NOTE | 2017-01-21 13:07 | HHI.GIFU ---
Subjective Remarks Resting in bed. Tolerating regular diet. No n/v. States abdominal pain much improved. Hoping to go home today. (Danni Barboza) Objective Vitals I&O Vital Signs Date Time Temp Pulse Resp B/P Pulse Ox O2 Delivery O2 Flow Rate FiO2 01/21/17 12:00 97.2 86 16 126/81 100 01/21/17 08:00 97.0 87 16 122/75 100 01/21/17 04:00 96.1 88 20 133/78 99 01/21/17 00:00 98.1 84 20 140/86 96 01/20/17 21:00 90 01/20/17 20:00 96.8 95 20 153/95 100 01/20/17 16:00 96.2 77 16 141/94 100 01/20/17 14:30 96.9 82 16 172/108 100 01/20/17 14:18 18 01/20/17 13:25 81 16 152/102 100 01/20/17 13:15 87 16 153/103 100 01/20/17 13:06 98.0 97 18 143/94 100 I/O 01/20/17 01/20/17 01/20/17 01/21/17 01/21/17 01/21/17 07:00 15:00 23:00 07:00 15:00 23:00 Intake Total 1230 ml 150 ml 240 ml 1260 ml Output Total 550 ml 675 ml Balance 680 ml -525 ml 240 ml 1260 ml Intake Oral 0 ml 0 ml 240 ml 360 ml IV Total 1230 ml 900 ml Other 150 ml Output Urine Total 550 ml 675 ml # Voids 1 2 # Bowel Movements 0 0 0 0 Laboratory Date/Time Procedure Status Source Growth 01/17/17 17:55 Influenza Types A,B Antigen (EFFIE) - Final Complete Nasal Aspirate NEGATIVE FOR FLU A AND B ANTIGEN.... 01/17/17 17:50 Aerobic Blood Culture - Preliminary Resulted Blood Peripheral NO GROWTH IN 4 DAYS 01/17/17 17:50 Anaerobic Blood Culture - Preliminary Resulted Blood Peripheral NO GROWTH IN 4 DAYS 01/17/17 17:30 Urine Culture - Final Complete Urine Random Urine NO GROWTH IN 48 HOURS. Imaging Last Impressions Abdomen/Pelvis CT 01/17/17 0000 Signed Impressions: Service Date/Time: Tuesday, January 17, 2017 18:47 - CONCLUSION: 1. No acute findings. Mild ileus. No free air or free fluid. No obstruction. Dylan Harden MD Physical Exam HEENT: Normocephalic; atraumatic; no jaundice. Throat is clear. NECK: Neck is supple, no JVD, no lymphadenopathy. CHEST: CTA CARDIAC: RRR ABDOMEN: Soft, nondistended, nontender; no hepatosplenomegaly; bowel sounds are present in all four quadrants. EXTREMITIES: No clubbing, cyanosis, or edema. SKIN: Normal; no rash; no jaundice. FRYLINE ATTENDANT: No focal deficits; alert and oriented times three. (Danni Barboza) Assessment and Plan Plan ASSESSMENT: - Epigastric pain, nausea, vomiting. S/P EGD (01/20/17)----> gastritis, esophagitis. Pathology pending. PPI. Tolerating diet. No longer having nausea, vomiting. Epigastric pain much improved. Requesting to go home. PLAN: - Okay to d/c home from GI standpoint - STEPHANY - Await pathology - PPI - FU CRUZ 2 weeks - GI will sign off, please reconsult as needed - Pt seen and examined by Dr. Gonzalez and myself and this note is written on his behalf (Danni Barboza) Physician Comments Seen and examined with ELMER, doing better, s/p egd. Can dc home with gi fu. Thank you (Raisa Gonzalez MD) Danni Barboza Jan 21, 2017 13:07 Raisa Gonzalez MD Jan 21, 2017 13:50
--- NOTE | 2017-01-21 14:18 | HHI.PR ---
Subjective Remarks patient doing great no abdominal pain, nausea or vomiting no urinary symptoms excited to go home Objective Vitals Vital Signs Date Time Temp Pulse Resp B/P Pulse Ox O2 Delivery O2 Flow Rate FiO2 01/21/17 12:00 97.2 86 16 126/81 100 01/21/17 08:00 97.0 87 16 122/75 100 01/21/17 04:00 96.1 88 20 133/78 99 01/21/17 00:00 98.1 84 20 140/86 96 01/20/17 21:00 90 01/20/17 20:00 96.8 95 20 153/95 100 01/20/17 16:00 96.2 77 16 141/94 100 01/20/17 14:30 96.9 82 16 172/108 100 01/20/17 14:18 18 I/O 01/20/17 01/20/17 01/20/17 01/21/17 01/21/17 01/21/17 07:00 15:00 23:00 07:00 15:00 23:00 Intake Total 1230 ml 150 ml 240 ml 1260 ml Output Total 550 ml 675 ml Balance 680 ml -525 ml 240 ml 1260 ml Intake Oral 0 ml 0 ml 240 ml 360 ml IV Total 1230 ml 900 ml Other 150 ml Output Urine Total 550 ml 675 ml # Voids 1 2 # Bowel Movements 0 0 0 0 Result Diagram: 01/18/1743001/18/17430 Objective Remarks awake and alert, NAD anicteric no oral thrush no nuchal rigidity lungs clear, no rales or wheezes regular rhythm abdomen- soft, + bowel sounds, + non tender no edema neuro exam- non focal Procedures 01/20- EGD- gastritis/esophagitis A/P Problem List: (1) Sepsis ICD Code: A41.9 Status: Acute (2) Ileus ICD Code: K56.7 Status: Acute Assessment and Plan Sepsis related to UTI + HIV - Urine culture no growth - DC antibiotics- per ID - continue on HAART meds - Tylenol as needed for fever Gastritis s/p EGD - Abdominal pain- resolved Ileus, mild - lipase normal- - PPI40 mg po bid - GI ff up as OP Type 1 diabetes mellitus - Diabetic conservative carbohydrate diet - Continue home Levemir - Accu-Cheks before meals and at bedtime with low-dose NovoLog sliding scale coverage - Monitor blood glucose levels and adjust treatments as indicated - Hypoglycemia protocol in place History of hypertension - continue on his ERIC- Lisinopril- increase dose In ER, he was given Zosyn and Toradol at same time with allergic reaction of hives; uncertain at this time which drug caused the allergic reaction DVT prophylaxis Encourage increase activity and ambulation around room - SCDs DC today Diet- heart healthy ADA ACtivity as tolerated continue home meds new script- Protonix 40 mg po bid FF up with PCP ff up with GI in 2 weeks Problem Qualifiers (1) Sepsis: Qualified Code: A41.9 - Sepsis, due to unspecified organism Fior Marquez MD Jan 21, 2017 14:18
--- NOTE | 2017-01-21 14:19 | HHI.DS ---
Discharge Summary Admission Date Jan 17, 2017 at 20:06 Discharge Date: Jan 21, 2017 Admitting Diagnosis Sepsis with UTI (1) Sepsis ICD Code: A41.9 Diagnosis: Principal (2) Ileus ICD Code: K56.7 Diagnosis: Principal Procedures 01/20- EGD- Brief History - From Admission Mr. Lutz is a 21-year-old male with a past medical history of HIV infection ( patient reports viral load is zero) and type 1 diabetes mellitus who presented to the emergency room 01/17/2017 complaining of abdominal pain. He presented to the emergency room 01/14/2017 with similar symptoms. Gallbladder ultrasound at that time showed no calcified stones and normal dimension of the common hepatic duct. Mild amount of sludge within the gallbladder. Chest x-ray was negative. Today, CT of abdomen and pelvis was performed with IV contrast which showed mild ileus and no other acute findings. No obstruction. Temperatures 100.5 in the ER, pulse 128 on arrival. UA is abnormal with moderate occult blood, small leukocyte esterase with culture indicated. The patient is seen in the emergency room, he reports intermittent abdominal pain occurring since October. He states this episode is been going on for about 2 weeks and is accompanied by nausea, vomiting, and constipation. He also reports accompanying fever. Symptoms are severe. He is currently requesting pain medication for his abdominal discomfort. Denies urinary symptoms. In ER, he was given Zosyn and Toradol at same time with allergic reaction of hives; uncertain at this time which drug caused the allergic reaction . CBC/BMP: 01/18/17 0431 01/18/17 0431 Imaging Last Impressions Abdomen/Pelvis CT 01/17/17 0000 Signed Impressions: Service Date/Time: Tuesday, January 17, 2017 18:47 - CONCLUSION: 1. No acute findings. Mild ileus. No free air or free fluid. No obstruction. Dylan Harden MD PE at Discharge awake and alert, NAD anicteric no oral thrush no nuchal rigidity lungs clear, no rales or wheezes regular rhythm abdomen- soft, + bowel sounds, + non tender no edema neuro exam- non focal Pt update on day of discharge no abdominal pain, nausea or vomiting smiling and interactive Hospital Course Sepsis related to UTI + HIV - Urine culture no growth - DC antibiotics- per ID - continue on HAART meds - Tylenol as needed for fever Gastritis s/p EGD - Abdominal pain- resolved Ileus, mild - lipase normal- - PPI40 mg po bid - GI ff up as OP Type 1 diabetes mellitus - Diabetic conservative carbohydrate diet - Continue home Levemir - Accu-Cheks before meals and at bedtime with low-dose NovoLog sliding scale coverage - Monitor blood glucose levels and adjust treatments as indicated - Hypoglycemia protocol in place History of hypertension - continue on his ERIC- Lisinopril- increase dose In ER, he was given Zosyn and Toradol at same time with allergic reaction of hives; uncertain at this time which drug caused the allergic reaction DVT prophylaxis Encourage increase activity and ambulation around room - SCDs DC today Diet- heart healthy ADA ACtivity as tolerated continue home meds new script- Protonix 40 mg po bid FF up with PCP ff up with GI in 2 weeks Pt Condition on Discharge: Good Discharge Disposition: Discharge Home Discharge Time: <= 30 minutes Discharge Instructions DIET: Follow Instructions for: Heart Healthy Diet, Diabetic Diet Speech Therapy-Diet Recommends: Regular Activities you can perform: Weight Bearing as Prerna Follow up Referrals: Gastroenterology - 2 Weeks with Raisa Gonzalez MD PCP Follow-up - 01/27/17 with PCP New Medications: Lisinopril (Lisinopril) 10 Mg Tab 10 MG PO DAILY HTN Days 30 TAB Pantoprazole (Pantoprazole) 40 Mg Tab 40 MG PO Q12HR ESO/GAS Days 30 TAB Continued Medications: Niiwigufyeye-Npbfzqrlqf-Gqvnojnmtcqg-Tenofvir (Genvoya) [phone] Mg Tab 1 TAB PO DAILY Mgmt Viral Infection #30 Ref 0 TAB Insulin Detemir Inj (Levemir Inj) 1,000 unit/ 10 ML Vial 21 UNITS SQ HS Do not mix with any other Insulin. Blood Sugar Management Ref 0 VIAL Insulin Detemir Inj (Levemir Inj) 1,000 unit/ 10 ML Vial 19 UNITS SQ DAILY Do not mix with any other Insulin. Blood Sugar Management Ref 0 VIAL Discontinued Medications: Lisinopril (Lisinopril) 5 Mg Tab 5 MG PO DAILY Blood Pressure Management #30 Ref 0 TAB Fior Marquez MD Jan 21, 2017 14:19
[2017-01-21] MEDS ORDERED: LISI10TA3 PO (14:22)
[2017-01-21] MEDS ORDERED: PANT40TA3 PO (14:22)
[2017-01-21] MEDS ORDERED: PANTOPRAZOLE SOD 40 MG DELAYED RELEASE TAB PO SCH (21:00)
== END 2017-01-21 17:47 | disposition home or self-care (01) | DRG 975 ==
LOC: NEPA 16:37 → NEDA 20:06 → N07B 01-18 00:48
PROVIDERS: ADMIT Internal Medicine; ATTEND Internal Medicine
PROC: 0DB68ZX Excision of Stomach, Via Natural or Artificial Opening Endoscopic, Diagnostic (ICD-10-PCS; 2017-01-20)
PROC: 0DB58ZX Excision of Esophagus, Via Natural or Artificial Opening Endoscopic, Diagnostic (ICD-10-PCS; principal; 2017-01-20 12:15)
DX: A41.9 Sepsis, unspecified organism (principal); B20 Human immunodeficiency virus [HIV] disease; K56.7 Ileus, unspecified; N39.0 Urinary tract infection, site not specified; E10.9 Type 1 diabetes mellitus without complications; I10 Essential (primary) hypertension; K29.70 Gastritis, unspecified, without bleeding; K20.9 Esophagitis, unspecified; R00.0 Tachycardia, unspecified; T36.0X5A Adverse effect of penicillins, initial encounter; L50.0 Allergic urticaria; Y92.239 Unspecified place in hospital as the place of occurrence of the external cause; Z82.49 Family history of ischemic heart disease and other diseases of the circulatory system; Z83.3 Family history of diabetes mellitus; Z84.89 Family history of other specified conditions; Z91.14 Patient's other noncompliance with medication regimen; Z79.4 Long term (current) use of insulin
CPT/HCPCS: 74177; 80048; 80053; 81001; 82948; 83605; 83690; 85025; 85610; 85730; 87040; 87086; 87804; 88305; 88312; 93005; 96374; 96375; C9113; J0744; J1170; J1200; J1815; J1885; J2250; J2270; J2405; J2543; J7030; Q9967

== ENCOUNTER 2017-10-20 16:25 | Emergency (ER) | payer SELFPAY ==
[~2017-10-20 16:25] MED LIST: ELVI1TAB3 PO; LEVEMIR SQ; LISI10TA3 PO; PANT40TA3 PO
[2017-10-20 16:27] VITALS: BP 174/84; PULSE 84; RESP 16; TEMP 97.7; O2SAT 100
[2017-10-20] MEDS ORDERED: DIAZEPAM 5 MG TAB PO ONE (17:45)
[2017-10-20] MEDS ORDERED: NAPROXEN 500 MG TAB PO ONE (17:45)
[2017-10-20] MEDS ORDERED: NAPR500 PO (17:51)
[2017-10-20] MEDS ORDERED: DIAZ5 PO (17:51)
--- NOTE | 2017-10-20 17:51 | PD ---
HPI Chief Complaint: Back/ Neck Pain or Injury Time Seen by Provider: 17:04 Travel History International Travel<30 days: No Contact w/Intl Traveler<30days: No Traveled to known affect area: No History of Present Illness HPI The patient is a 21-year-old [place] male who presents emergency department for neck pain and stiffness of 1 week's duration. The patient states approximately one week ago he went to bed, feeling fine, when he awakened in the morning he had a stiff neck. The patient initially thought he slept wrong. The pain is located over the posterior aspect of the neck, radiates down the size of the neck and into the shoulders bilaterally. The pain is worse with movement, slightly alleviated at rest. He denies any headache, fever, photophobia, nausea, vomiting, or URI symptoms. The patient denies any history of IV drug abuse, dialysis, or prolonged immunosuppressive therapy. The patient does have a history of HIV and is currently on antivirals , states his last CD4 count was greater than 500. He denies any direct trauma to the neck. He denies any radiation of the pain down the spine he denies any weakness or numbness of the upper or lower extremities. PFSH Past Medical History Diabetes: Yes Patient Takes Glucophage: No (TYPE I ) Hypertension: Yes Immune Disorder: Yes (HIV) Past Surgical History Other Surgery: Yes Social History Alcohol Use: Yes (OCC) Tobacco Use: No Substance Use: No Allergies-Medications (Allergen,Severity, Reaction): Coded Allergies: piperacillin (Unverified Allergy, Severe, Hives, 06/22/17) Given Zosyn and Toradol at same time with allergic reaction of hives; uncertain at this time which drug caused the allergic reaction tazobactam (Unverified Allergy, Severe, Hives, 06/22/17) Given Zosyn and Toradol at same time with allergic reaction of hives; uncertain at this time which drug caused the allergic reaction ketorolac (Unverified Allergy, Unknown, Hives, 06/22/17) Given Zosyn and Toradol at same time with allergic reaction of hives; uncertain at this time which drug caused the allergic reaction Reported Meds & Prescriptions Reported Meds & Active Scripts Active Pantoprazole (Pantoprazole Sodium) 40 Mg Tab 40 Mg PO Q12HR 30 Days Lisinopril 10 Mg Tab 10 Mg PO DAILY 30 Days Reported Levemir Inj (Insulin Detemir) 1,000 unit/ 10 ML Vial 19 Units SQ DAILY Do not mix with any other Insulin. Levemir Inj (Insulin Detemir) 1,000 unit/ 10 ML Vial 21 Units SQ HS Do not mix with any other Insulin. Genvoya (Sgwagqopvnfa-Hpnwfdcvwc-Pmuxofuuzxqk-Tenofvir) [phone] Mg Tab 1 Tab PO DAILY Review of Systems Except as stated in HPI: all other systems reviewed are Neg General / Constitutional: No: Fever, Chills Eyes: No: Photophobia HENT: Positive: Neck Stiffness, Neck Pain, No: Headaches Cardiovascular: No: Chest Pain or Discomfort Respiratory: No: Cough, Shortness of Breath Gastrointestinal: No: Nausea, Vomiting Genitourinary: No: Dysuria Musculoskeletal: No: Weakness Neurologic: No: Dizziness, Paresthesia, Sensory Disturbance Physical Exam Narrative GENERAL: Awake, alert, pleasant 21-year-old male who appears his stated age and is in no acute respiratory distress. SKIN: Focused skin assessment warm/dry. HEAD: Atraumatic. Normocephalic. EYES: Pupils equal and round. No scleral icterus. No injection or drainage. No photophobia noted. ENT: No nasal bleeding or discharge. Mucous membranes pink and moist. NECK: Trachea midline. No JVD. The patient has paravertebral tenderness of the cervical paravertebral muscles that started at the inferior base of the occipital area and radiate down the paracervical vertebral muscle into the trapezius. There is no midline tenderness. He is able to flex and extend the neck as well as rotate, somewhat limited range of motion secondary to pain. Back: No tenderness over the thoracic or lumbar vertebrae. He is able flex the thorax without difficulty. MUSCULOSKELETAL: No obvious deformities. No clubbing. No cyanosis. No edema. NEUROLOGICAL: Awake and alert. No obvious cranial nerve deficits. Motor grossly within normal limits. Normal speech. PSYCHIATRIC: Appropriate mood and affect; insight and judgment normal. Data Data Last Documented VS Vital Signs Date Time Temp Pulse Resp B/P (MAP) Pulse Ox O2 Delivery O2 Flow Rate FiO2 10/20/17 16:27 97.7 84 16 174/84 (114) 100 Orders Orders Apply Cervical Collar (10/20/17 17:28) Naproxen (Naprosyn) (10/20/17 17:45) Diazepam (Valium) (10/20/17 17:45) [facility] Medical Decision Making Medical Screen Exam Complete: Yes Emergency Medical Condition: Yes Medical Record Reviewed: Yes Differential Diagnosis Differential diagnosis includes meningitis, cervical epidural abscess, muscle strain, carotid dissection, vertebral artery dissection, musculoskeletal pain. Narrative Course The patient is afebrile has no photophobia, headache, and since his been ongoing for 1 week. I doubt meningitis. He has no history of IV drug use, dialysis, or prolonged prednisone use. I doubt epidural abscess. He does have a history of HIV, however, CD4 count is greater than 500 and he has no other URI symptoms. The patient was placed in a soft cervical collar and was administer Naprosyn and Valium. The patient has a history of allergies to Toradol with hives, but has been taking Motrin/Advil without difficulty. He is advised to follow-up with a primary physician and return for fever or progressing symptoms. Diagnosis Primary Impression: Cervical paraspinal muscle spasm Patient Instructions: General Instructions Additional Instructions: Medications as directed. Follow-up with your primary physician. Return if symptoms worsen or progress. Soft collar as needed. Med/Other Pt SpecificInfo: Prescription(s) given Scripts Naproxen (Naprosyn) 500 Mg Tab 500 MG PO BID for 10 Days, #20 TAB 0 Refills Prov: Harley Soliman MD 10/20/17 Diazepam (Valium) 5 Mg Tab 5 MG PO TID Y for SPASM, #15 TAB 0 Refills Prov: Harley Soliman MD 10/20/17 Disposition: 01 DISCHARGE HOME Condition: Stable Harley Soliman MD Oct 20, 2017 17:51
[2017-10-20 20:07] VITALS: BP 163/103; PULSE 91; RESP 16; O2SAT 98
== END 2017-10-20 20:13 | disposition home or self-care (01) ==
LOC: NEPC 16:25
DX: M62.838 Other muscle spasm (principal); E11.9 Type 2 diabetes mellitus without complications; I10 Essential (primary) hypertension; Z21 Asymptomatic human immunodeficiency virus [HIV] infection status; Z79.4 Long term (current) use of insulin; Z79.899 Other long term (current) drug therapy; Z88.0 Allergy status to penicillin; Z88.8 Allergy status to other drugs, medicaments and biological substances
CPT/HCPCS: 99283